=== PATIENT | female | born 1995 | race Caucasian/White ===

== ENCOUNTER 2024-01-08 00:44 | Inpatient (IN) | payer MEDICAID ==
[2024-01-08] MEDS ORDERED: fentaNYL 100 MCG/2 ML SDV ONE (01:32)
[2024-01-08] MEDS ORDERED: Bupivacaine 0.25% 10 ML SDV ONE (01:32)
[2024-01-08] MEDS ORDERED: Tranexamic Acid 1,000 MG in Sodium Chloride 0.9% 100 ML IV PRN (01:39)
[2024-01-08] MEDS ORDERED: Acetaminophen 325 MG Tab PO PRN ×2 (01:39→11:01)
[2024-01-08] MEDS ORDERED: Lidocaine 1% 30 ML SDV INJECT ONE (01:39)
[2024-01-08] MEDS ORDERED: Misoprostol 400 MCG (4 X 100 MCG TAB) RECTAL PRN (01:39)
[2024-01-08] MEDS ORDERED: Sodium Chloride 0.9% 10 ML Syringe FLUSH PRN (01:39)
[2024-01-08] MEDS ORDERED: Ondansetron 4 MG/2 ML SDV IVPUSH PRN (01:39)
[2024-01-08] MEDS ORDERED: Carboprost Tromethamine 250 MCG/1 ML Amp IM PRN (01:39)
[2024-01-08] MEDS ORDERED: Methylergonovine 0.2 MG/1 ML Amp IM PRN (01:39)
[2024-01-08 01:49] LABS: HEMATOCRIT 35.7 % (37.0-47.0); HEMOGLOBIN 11.8 g/dL (12.0-16.0); MEAN CORPUSCULAR HEMOGLOBIN 29.8 pg (27.0-34.0); MEAN CORPUSCULAR HGB CONC 33.1 g/dL (33.0-35.0); MEAN CORPUSCULAR VOLUME 90.2 fL (80-100); RED BLOOD CELL COUNT 3.96 10^6/uL (4.2-5.4); WHITE BLOOD CELL COUNT,WBC 13.6 10^3/uL (5.0-10.0)
[2024-01-08] MEDS ORDERED: Ropivacaine 200 MG in Premix Bag 1 BAG EPIDUR SCH (02:00)
[2024-01-08] MEDS ORDERED: ePHEDrine 50 MG/ML SDV IVPUSH PRN (02:00)
[2024-01-08] MEDS ORDERED: Phenylephrine HCl In 0.9% NaCl 1 MG/10 ML Syringe IVPUSH PRN (02:00)
[2024-01-08] MEDS: Lactated Ringers 1,000 ML IV SCH (06:30)
[2024-01-08] MEDS: Oxytocin/Normal Saline 30 UNIT/500 ML BAG IV SCH (10:54)
[2024-01-08] MEDS ORDERED: Oxytocin 10 Units/1 ML SDV IM PRN (11:01)
[2024-01-08] MEDS ORDERED: Simethicone 80 MG Tab.Chew PO PRN (11:01)
[2024-01-08] MEDS: Ibuprofen 800 MG Tab PO PRN (14:17)
[2024-01-08] MEDS: Witch Hazel Medicated Pads 100/Jar TOP PRN (14:17)
[2024-01-08] MEDS: Docusate Sodium 100 MG Cap PO PRN (14:18)
[2024-01-08] MEDS: Benzocaine/Menthol 20%-0.5% Spray 78 GM Cannister TOP PRN (14:18)
[2024-01-08] MEDS: Loratadine 10 MG Tab PO SCH (14:24)
[2024-01-08] MEDS: Lactated Ringers 1,000 ML IV ONE (14:24)
[2024-01-09 07:04] LABS: HEMOGLOBIN 11.5 g/dL (12.0-16.0); MEAN CORPUSCULAR HEMOGLOBIN 29.8 pg (27.0-34.0); MEAN CORPUSCULAR HGB CONC 32.9 g/dL (33.0-35.0); MEAN CORPUSCULAR VOLUME 90.7 fL (80-100); RED BLOOD CELL COUNT 3.86 10^6/uL (4.2-5.4); WHITE BLOOD CELL COUNT,WBC 22.2 10^3/uL (5.0-10.0)
[2024-01-09] MEDS: Prenatal Multivitamin with Calcium/Folic Acid/Iron Tab PO SCH (08:10)
== END 2024-01-09 14:00 | disposition home or self-care (01) | DRG 807 ==
LOC: DL.OB 00:47 → OBSVTOIN 10:44 → DL.OB 10:44
PROVIDERS: ADMIT Family Medicine; ATTEND Family Medicine
PROC: 10D07Z6 Extraction of Products of Conception, Vacuum, Via Natural or Artificial Opening (ICD-10-PCS; principal; 2024-01-08)
PROC: 0KQM0ZZ Repair Perineum Muscle, Open Approach (ICD-10-PCS; 2024-01-08)
PROC: 3E0R3BZ Introduction of Anesthetic Agent into Spinal Canal, Percutaneous Approach (ICD-10-PCS; 2024-01-08)
PROC: 00HU33Z Insertion of Infusion Device into Spinal Canal, Percutaneous Approach (ICD-10-PCS; 2024-01-08)
DX: O42.02 Full-term premature rupture of membranes, onset of labor within 24 hours of rupture (principal); Z37.0 Single live birth; O99.814 Abnormal glucose complicating childbirth; Z3A.38 38 weeks gestation of pregnancy; O70.1 Second degree perineal laceration during delivery; O66.5 Attempted application of vacuum extractor and forceps
CPT/HCPCS: 01967; 36415; 51702; 59409; 85027; A9270-GY; J2590; J7120

== ENCOUNTER 2025-06-07 04:12 | Inpatient (IN) | payer MEDICAID ==
[2025-06-07] MEDS ORDERED: Nalbuphine HCl 10 MG/ 1ML Amp IM PRN (08:46)
[2025-06-07] MEDS ORDERED: Sodium Chloride 0.9% 10 ML Syringe FLUSH PRN (08:46)
[2025-06-07] MEDS ORDERED: fentaNYL 100 MCG/2 ML SDV IVPUSH PRN (08:46)
[2025-06-07] MEDS ORDERED: Carboprost Tromethamine 250 MCG/1 mL Vial IM PRN (08:46)
[2025-06-07] MEDS ORDERED: Ondansetron 4 MG/2 ML SDV IVPUSH PRN (08:46)
[2025-06-07 08:57] LABS: PLATELET COUNT,PLT 323.0 10^3/uL (150-450); RED BLOOD CELL COUNT 3.75 10^6/uL (4.2-5.4); WHITE BLOOD CELL COUNT,WBC 10.9 10^3/uL (5.0-10.0)
[2025-06-07] MEDS: Lactated Ringers 1,000 ML IV ONE (09:00)
[2025-06-07] MEDS: Oxytocin/Normal Saline 30 UNIT/500 ML BAG IV SCH (09:00)
[2025-06-07] MEDS: Lactated Ringers 1,000 ML IV SCH (11:12)
[2025-06-07] MEDS ORDERED: ePHEDrine 50 MG/ML SDV IVPUSH PRN (11:57)
[2025-06-07] MEDS ORDERED: Ropivacaine 200 MG in Premix Bag 1 BAG EPIDUR SCH (12:00)
[2025-06-07] MEDS ORDERED: Oxytocin 10 Units/1 ML SDV IM PRN (16:04)
[2025-06-07] MEDS: Witch Hazel Medicated Pads 100/Jar TOP PRN (17:57)
[2025-06-07] MEDS: Benzocaine/Menthol 20%-0.5% Spray 78 GM Cannister TOP PRN (17:57)
[2025-06-08] MEDS: Prenatal Multivitamin with Calcium/Folic Acid/Iron Tab PO SCH (09:02)
== END 2025-06-08 16:50 | disposition home or self-care (01) | DRG 807 ==
LOC: DL.OB 08:07 → OBSVTOIN 15:53 → DL.OB 15:53
PROVIDERS: ADMIT Family Medicine; ATTEND Family Medicine
PROC: 3E0R3BZ Introduction of Anesthetic Agent into Spinal Canal, Percutaneous Approach (ICD-10-PCS; principal; 2025-06-07)
PROC: 3E033VJ Introduction of Other Hormone into Peripheral Vein, Percutaneous Approach (ICD-10-PCS; principal; 2025-06-07)
PROC: 10D07Z6 Extraction of Products of Conception, Vacuum, Via Natural or Artificial Opening (ICD-10-PCS; principal; 2025-06-07)
PROC: 10907ZC Drainage of Amniotic Fluid, Therapeutic from Products of Conception, Via Natural or Artificial Opening (ICD-10-PCS; principal; 2025-06-07)
DX: O48.0 Post-term pregnancy (principal); Z37.0 Single live birth; O99.814 Abnormal glucose complicating childbirth; Z3A.40 40 weeks gestation of pregnancy; Z79.899 Other long term (current) drug therapy
CPT/HCPCS: 36415; 59409; 85027; A9270-GY; J2590; J7120